=== PATIENT | female | born 1990 | race Two or more races ===

== ENCOUNTER 2017-06-26 19:34 | Emergency (ER) | payer MEDICAID ==
[~2017-06-26] VITALS: Ht 162.6 cm; Wt 86.2 kg
[~2017-06-26 19:34] MED LIST: PREN-145 OR
[2017-06-26 19:46] VITALS: BP 129/68
== END 2017-06-26 21:24 | disposition left against medical advice (07) ==
LOC: ER 19:34
DX: R07.89 Other chest pain (principal); Z53.21 Procedure and treatment not carried out due to patient leaving prior to being seen by health care provider
CPT/HCPCS: 93005

== ENCOUNTER 2022-03-19 20:36 | Emergency (ER) | payer SELFPAY ==
[~2022-03-19] VITALS: Ht 162.6 cm; Wt 81.8 kg
[2022-03-19 22:51] LABS: Basophils # (auto) 0 10 ^3/uL (0-0.2); Basophils % (auto) 0.3 % (0.0-2.0); Eosinophils # (auto) 0.1 10 ^3/uL (0-0.8); Eosinophils % (auto) 0.5 % (0.0-7.0); Hematocrit 45.1 % (36.0-46.0); Hemoglobin 14.5 g/dL (12.2-16.2); Lymphocytes # (auto) 4.3 10 ^3/uL (0.4-5.4); Lymphocytes % (auto) 32.4 % (10.0-50.0); Mean Corpuscular Hgb Conc. 32.1 g/dL (32.0-36.0); Mean Corpuscular Volume 90.2 fL (80.0-100.0); Monocytes # (auto) 0.8 10 ^3/uL (0-1.3); Monocytes % (auto) 6.4 % (0.0-12.0); Neutrophils # (auto) 7.9 10 ^3/uL (1.6-8.6); Neutrophils % (auto) 60.4 % (37.0-80.0); Nucleated Red Blood Cells % 0.2 %; Red Cell Distribution Width 14.2 % (11.8-14.3); White Blood Cell 13.1 10^3/uL (4.4-10.8)
[2022-03-19 23:05] LABS: Urine Bacteria FEW /hpf (None Seen); Urine Blood Negative /uL (Negative); Urine Mucus FEW (None Seen); Urine Specific Gravity 1.033 (1.001-1.035); Urine WBC 4 /hpf (0 - 5)
[2022-03-19 23:13] LABS: Albumin 3.9 g/dL (3.4-5.0); Calcium 9.2 mg/dL (8.5-10.1)
[2022-03-19 23:15] LABS: BUN/Creatinine Ratio 15.4
[2022-03-19 23:17] LABS: Bilirubin, Total 0.6 mg/dL (0.2-1.0); Total Protein 8.5 g/dL (6.4-8.2)
[2022-03-20] MEDS ORDERED: NITR-87 PO (03:10)
[2022-03-20] MEDS ORDERED: NITROFURANTOIN 100 mg CAP PO ONE (03:15)
[2022-03-20 06:25] VITALS: BP 141/81
== END 2022-03-20 06:27 | disposition home or self-care (01) ==
LOC: ER 20:39
DX: O23.41 Unspecified infection of urinary tract in pregnancy, first trimester (principal); Z3A.01 Less than 8 weeks gestation of pregnancy
CPT/HCPCS: 36415; 76801; 80053; 81001; 84702; 85025

== ENCOUNTER 2022-03-23 22:43 | Emergency (ER) | payer SELFPAY ==
[~2022-03-23] VITALS: Ht 162.6 cm; Wt 90.0 kg
[~2022-03-23 22:43] MED LIST changes: +NITR-87 PO
[2022-03-23 23:01] VITALS: BP 116/68
== END 2022-03-24 00:34 | disposition left against medical advice (07) ==
LOC: ER 22:43
DX: O21.9 Vomiting of pregnancy, unspecified (principal); Z3A.01 Less than 8 weeks gestation of pregnancy; Z53.21 Procedure and treatment not carried out due to patient leaving prior to being seen by health care provider

== ENCOUNTER 2022-09-26 08:44 | Observation (INO) | payer MEDICAID | END 2022-09-27 12:00 | disposition home or self-care (01) | LOC: LDRP 09-27 09:49 → UNDOADMOB 09-27 09:49 → LDRP 09-27 10:32 | PROVIDERS: ADMIT Obstetrics & Gynecology; ATTEND Obstetrics & Gynecology | DX: O24.419 Gestational diabetes mellitus in pregnancy, unspecified control (principal); Z3A.33 33 weeks gestation of pregnancy | CPT/HCPCS: 59025; 76818; 81002; 82948; 82962; G0378 ==

== ENCOUNTER 2022-10-02 09:20 | Observation (INO) | payer MEDICAID ==
[2022-10-02] MEDS ORDERED: GLYB2.5T8 PO (10:29)
[2022-10-02] MEDS ORDERED: METF-370 PO ×2 (10:29→10:30)
== END 2022-10-02 10:48 | disposition home or self-care (01) ==
LOC: LDRP 09:20
PROVIDERS: ADMIT Obstetrics & Gynecology; ATTEND Obstetrics & Gynecology
DX: O24.415 Gestational diabetes mellitus in pregnancy, controlled by oral hypoglycemic drugs (principal); Z3A.34 34 weeks gestation of pregnancy; Z79.84 Long term (current) use of oral hypoglycemic drugs; Z87.891 Personal history of nicotine dependence
CPT/HCPCS: 59025; 76818; 81002; 82948; 82962; 94760; G0378

== ENCOUNTER 2022-10-05 10:01 | Observation (INO) | payer MEDICAID ==
[~2022-10-05 10:01] MED LIST changes: +GLYB2.5T8 PO; +METF-370 PO
== END 2022-10-05 11:21 | disposition home or self-care (01) ==
LOC: UNDOADMOB 10:01 → LDRP 10:01 → UNDODISOB 11:21
PROVIDERS: ADMIT Obstetrics & Gynecology; ATTEND Obstetrics & Gynecology
DX: O24.419 Gestational diabetes mellitus in pregnancy, unspecified control (principal); Z3A.35 35 weeks gestation of pregnancy
CPT/HCPCS: 59025; 76818; 81002; 82948; 82962; 94760; G0378

== ENCOUNTER 2022-10-09 09:25 | Observation (INO) | payer MEDICAID | END 2022-10-09 10:55 | disposition home or self-care (01) | LOC: LDRP 09:25 → UNDOADMOB 09:25 → LDRP 09:59 | PROVIDERS: ADMIT Obstetrics & Gynecology; ATTEND Obstetrics & Gynecology | DX: O24.419 Gestational diabetes mellitus in pregnancy, unspecified control (principal); Z3A.35 35 weeks gestation of pregnancy; Z87.891 Personal history of nicotine dependence | CPT/HCPCS: 59025; 76818; 81002; 82948; 82962; G0378 ==

== ENCOUNTER 2022-10-12 10:23 | Observation (INO) | payer MEDICAID | END 2022-10-12 12:35 | disposition home or self-care (01) | LOC: UNDOADMOB 10:23 → LDRP 10:23 | PROVIDERS: ADMIT Obstetrics & Gynecology; ATTEND Obstetrics & Gynecology | DX: O24.419 Gestational diabetes mellitus in pregnancy, unspecified control (principal); Z3A.35 35 weeks gestation of pregnancy | CPT/HCPCS: 59025; 76818; 81002; 82948; 82962; 94760; G0378 ==

== ENCOUNTER 2022-10-16 09:20 | Observation (INO) | payer MEDICAID | END 2022-10-16 11:20 | disposition home or self-care (01) | LOC: LDRP 09:20 | PROVIDERS: ADMIT Obstetrics & Gynecology; ATTEND Obstetrics & Gynecology | DX: O24.419 Gestational diabetes mellitus in pregnancy, unspecified control (principal); Z3A.36 36 weeks gestation of pregnancy | CPT/HCPCS: 59025; 76818; 81002; 82948; 82962; G0378 ==

== ENCOUNTER 2022-10-19 10:05 | Observation (INO) | payer MEDICAID ==
[~2022-10-19 10:05] MED LIST changes: -NITR-87 PO
== END 2022-10-19 11:00 | disposition short-term general hospital (02) ==
LOC: UNDOADMOB 10:05 → LDRP 10:05 → UNDODISOB 11:00
PROVIDERS: ADMIT Obstetrics & Gynecology; ATTEND Obstetrics & Gynecology
DX: O24.419 Gestational diabetes mellitus in pregnancy, unspecified control (principal); Z3A.37 37 weeks gestation of pregnancy
CPT/HCPCS: 59025; 76818; 81002; 82948; 82962; G0378

== ENCOUNTER 2022-10-22 09:48 | Observation (INO) | payer MEDICAID | END 2022-10-22 12:40 | disposition home or self-care (01) | LOC: UNDOADMOB 09:48 → LDRP 09:48 → UNDODISOB 12:40 | PROVIDERS: ADMIT Obstetrics & Gynecology; ATTEND Obstetrics & Gynecology | DX: O24.419 Gestational diabetes mellitus in pregnancy, unspecified control (principal); Z3A.37 37 weeks gestation of pregnancy; Z98.891 History of uterine scar from previous surgery | CPT/HCPCS: 59025; 76818; 81002; 82948; 82962; G0378 ==

== ENCOUNTER 2022-10-25 09:53 | Observation (INO) | payer MEDICAID | END 2022-10-25 11:35 | disposition home or self-care (01) | LOC: UNDOADMOB 09:53 → LDRP 09:53 | PROVIDERS: ADMIT Obstetrics & Gynecology; ATTEND Obstetrics & Gynecology | DX: O24.410 Gestational diabetes mellitus in pregnancy, diet controlled (principal); Z3A.37 37 weeks gestation of pregnancy; Z87.891 Personal history of nicotine dependence | CPT/HCPCS: 59025; 76818; 81002; 82948; 82962; G0378 ==

== ENCOUNTER 2022-11-02 05:19 | Inpatient (IN) | payer MEDICAID ==
[2022-10-31 10:21] LABS: Basophils # (auto) 0.1 10 ^3/uL (0-0.2); Basophils % (auto) 0.4 % (0.0-2.0); Eosinophils # (auto) 0.1 10 ^3/uL (0-0.8); Eosinophils % (auto) 0.6 % (0.0-7.0); Hematocrit 40.2 % (36.0-46.0); Hemoglobin 13.6 g/dL (12.2-16.2); Lymphocytes # (auto) 3.3 10 ^3/uL (0.4-5.4); Lymphocytes % (auto) 23.3 % (10.0-50.0); Mean Corpuscular Hemoglobin 29.9 pg (28.0-32.0); Mean Corpuscular Hgb Conc. 33.9 g/dL (32.0-36.0); Mean Corpuscular Volume 88.4 fL (80.0-100.0); Neutrophils # (auto) 9.8 10 ^3/uL (1.6-8.6); Neutrophils % (auto) 68.7 % (37.0-80.0); Nucleated Red Blood Cells % 0.3 %; Red Blood Cells 4.55 10^6/uL (4.0-5.20); Red Cell Distribution Width 13.9 % (11.8-14.3); White Blood Cell 14.3 10^3/uL (4.4-10.8)
[2022-10-31 10:31] LABS: Albumin 2.2 g/dL (3.4-5.0); BUN/Creatinine Ratio 18.3 (10.0-20.0); Calcium 9.4 mg/dL (8.5-10.1); Potassium 3.9 mmol/L (3.5-5.1)
[2022-10-31 10:33] LABS: Bilirubin, Total 0.4 mg/dL (0.2-1.0); Total Protein 7.2 g/dL (6.4-8.2)
[2022-10-31 10:38] LABS: INR 0.9 (0.9-1.15); Partial Thromboplastin Time 28.7 sec (24.6-33.4)
[2022-11-01 08:06] LABS: RPR Non Reactive (Non Reactive)
[~2022-11-02] VITALS: Ht 162.6 cm; Wt 115.7 kg
[2022-11-02] VITALS (12 sets, daily range): BP systolic 91–129; BP diastolic 49–86
[2022-11-02] MEDS ORDERED: LACTATED RINGER'S 1,000 ML IV SCH ×2 (06:45→13:45)
[2022-11-02] MEDS ORDERED: LACTATED RINGER'S 1,000 ML IV ONE (06:45)
[2022-11-02] MEDS ORDERED: ceFAZolin 2 GM/D5W100ml 100 ML IV ONE (06:45)
[2022-11-02] MEDS ORDERED: DEXTROSE IV ONE (07:30)
[2022-11-02] MEDS ORDERED: LACTATED RINGERS IV ONE (07:30)
[2022-11-02] MEDS: TERBUTALINE SULFATE 1 MG/ML 1ML VIAL SC SCH ×2 (07:31→09:17)
[2022-11-02 09:57] LABS: Urine Bacteria FEW /hpf (None Seen); Urine Blood Negative /uL (Negative); Urine Mucus FEW (None Seen); Urine Specific Gravity 1.035 (1.001-1.035); Urine WBC 21 /hpf (0 - 5)
[2022-11-02 10:16] LABS: Alcohol, Urine < 3.0 mg/dL (0-10); Amphetamine Screen, Urine NEGATIVE (NEGATIVE); Barbiturate Scree,Urine NEGATIVE (NEGATIVE); Benzodiazephine Screen, Urine NEGATIVE (NEGATIVE); Cannabinoid Screen, Urine NEGATIVE (NEGATIVE); Cocaine Screen, Urine NEGATIVE (NEGATIVE); Opiate Scree,Urine NEGATIVE (NEGATIVE); Phencyclidine Screen, Urine NEGATIVE (NEGATIVE)
[2022-11-02] MEDS ORDERED: GELATIN 1 SPONGE SIZE 100 TOP ONE (11:25)
[2022-11-02] MEDS ORDERED: ACETAMINOPHEN 500 MG TAB PO PRN (12:30)
[2022-11-02] MEDS ORDERED: MORPHINE SULFATE 4 MG/ML SYR/VIAL IV PRN (12:30)
[2022-11-02] MEDS ORDERED: ceFAZolin 1GM/50ML 50 ML IV ONE (12:30)
[2022-11-02] MEDS ORDERED: SODIUM CHLORIDE 0.9% 1,000 ML IV SCH (12:30)
[2022-11-02] MEDS ORDERED: ONDANSETRON HCL 4 MG/2 ML VIAL IV PRN ×2 (12:30→13:45)
[2022-11-02] MEDS ORDERED: HYDR-4902 PO (13:32)
[2022-11-02] MEDS ORDERED: DOCU-94 PO (13:32)
[2022-11-02] MEDS ORDERED: CEPH-510 PO (13:32)
[2022-11-02] MEDS ORDERED: diphenhdrAMINE HCL 50 MG/1 ML VL IV PRN (13:45)
[2022-11-02] MEDS: ACETAMINOPHEN IV 1000 MG/100ML (10MG/ML) IV PRN (15:25)
[2022-11-02] MEDS: ceFAZolin 1GM/50ML 50 ML IV SCH (15:57)
[2022-11-03] VITALS (11 sets, daily range): BP systolic 93–111; BP diastolic 51–78
[2022-11-03] MEDS: ceFAZolin 1GM/50ML 50 ML IV SCH ×2 (00:02→08:03)
[2022-11-03] MEDS: ACETAMINOPHEN IV 1000 MG/100ML (10MG/ML) IV PRN (01:02)
[2022-11-03 06:31] LABS: Basophils # (auto) 0 10 ^3/uL (0-0.2); Basophils % (auto) 0.2 % (0.0-2.0); Eosinophils # (auto) 0 10 ^3/uL (0-0.8); Eosinophils % (auto) 0.2 % (0.0-7.0); Hematocrit 28.7 % (36.0-46.0); Hemoglobin 9.6 g/dL (12.2-16.2); Lymphocytes # (auto) 3.6 10 ^3/uL (0.4-5.4); Lymphocytes % (auto) 19.8 % (10.0-50.0); Mean Corpuscular Hemoglobin 29.6 pg (28.0-32.0); Mean Corpuscular Hgb Conc. 33.5 g/dL (32.0-36.0); Mean Corpuscular Volume 88.4 fL (80.0-100.0); Monocytes # (auto) 1.6 10 ^3/uL (0-1.3); Monocytes % (auto) 8.8 % (0.0-12.0); Nucleated Red Blood Cells % 0.1 %; Red Blood Cells 3.24 10^6/uL (4.0-5.20); White Blood Cell 18.3 10^3/uL (4.4-10.8)
[2022-11-03] MEDS ORDERED: HYDROcodone-ACET 5/325MG TAB PO PRN (06:45)
[2022-11-03] MEDS ORDERED: BISACODYL 10 MG RECT SUPP PR PRN (06:45)
[2022-11-03] MEDS: HYDROcodone-ACET 5/325MG TAB PO PRN ×3 (07:01→21:26)
[2022-11-03] MEDS: IBUPROFEN 800 MG TAB PO PRN ×2 (09:50→19:06)
[2022-11-03] MEDS: DOCUSATE SOD 100 MG CAP PO SCH ×2 (09:51→21:26)
[2022-11-03] MEDS ORDERED: DOCUSATE CALCIUM 240 MG CAP PO SCH (10:00)
[2022-11-03] MEDS: SIMETHICONE 80 MG CHEWABLE TABLET PO SCH ×3 (12:04→21:27)
[2022-11-04] MEDS: HYDROcodone-ACET 5/325MG TAB PO PRN ×2 (01:04→12:11)
[2022-11-04] MEDS ORDERED: MEASLES, MUMPS & RUBELLA VAC(MMRII) 0.5ML SC ONE (01:30)
[2022-11-04 03:14] VITALS: BP 107/55
[2022-11-04] MEDS: IBUPROFEN 800 MG TAB PO PRN (05:55)
[2022-11-04] MEDS: SIMETHICONE 80 MG CHEWABLE TABLET PO SCH ×2 (05:55→12:10)
[2022-11-04 06:59] VITALS: BP 101/62
[2022-11-04] MEDS: DOCUSATE SOD 100 MG CAP PO SCH (10:00)
[2022-11-04 11:10] VITALS: BP 100/63
[2022-11-04 14:08] VITALS: BP 110/71
== END 2022-11-04 14:10 | disposition home or self-care (01) | DRG 540 ==
LOC: UNDOADMIN 05:19 → LDRP 05:19
PROVIDERS: ADMIT Obstetrics & Gynecology; ATTEND Obstetrics & Gynecology
PROC: 10D00Z1 Extraction of Products of Conception, Low, Open Approach (ICD-10-PCS; principal; 2022-11-02 10:33)
DX: O69.81X0 Labor and delivery complicated by cord around neck, without compression, not applicable or unspecified (principal); O34.211 Maternal care for low transverse scar from previous cesarean delivery; Z37.0 Single live birth; Z3A.39 39 weeks gestation of pregnancy; Z79.899 Other long term (current) drug therapy; Z86.32 Personal history of gestational diabetes; Z23 Encounter for immunization
CPT/HCPCS: 36415; 80053; 80307; 81001; 81002; 82947; 82948; 82962; 85025; 85610; 85730; 86592; 86850; 86900; 86901; 90471; 94760; 94762; 96360; 96361; 96372; G0378; J0131; J0690